=== PATIENT | male | born 1975 | race African-American/Black ===

== ENCOUNTER 2022-02-08 17:23 | Emergency (ER) | payer MEDICARE, OTHER ==
[~2022-02-08] VITALS: Ht 172.7 cm; Wt 63.5 kg
--- NOTE | 2022-02-08 17:23 | NUR ---
BIB [facility] 86 PT WAS C/O CHEST PAIN SEALING MACHINE OPERATOR, CHEST PAIN RESOLVED PT IS REQUESTING SANDWHICH.
[2022-02-08 18:48] VITALS: BP 123/59
== END 2022-02-08 18:49 | disposition home or self-care (01) ==
LOC: ER 17:27
DX: R07.89 Other chest pain (principal)
CPT/HCPCS: 71045-TC